=== PATIENT | female | born 1990 | race Caucasian/White ===

== ENCOUNTER 2018-01-11 12:17 | Outpatient (CLI) | END 2018-01-11 14:27 | disposition home or self-care (01) ==

== ENCOUNTER 2018-01-15 09:43 | Outpatient (CLI) | END 2018-01-15 12:30 | disposition home or self-care (01) ==

== ENCOUNTER 2018-01-22 07:45 | Inpatient (IN) | END 2018-01-24 14:19 | disposition home or self-care (01) | DRG 767 ==

== ENCOUNTER 2018-12-16 08:08 | Emergency (ER) | payer MEDICAID ==
[~2018-12-16] VITALS: Ht 167.6 cm; Wt 88.4 kg
[~2018-12-16 08:08] MED LIST: IBUP-1542 PO; PREN1TAB17 PO
[2018-12-16 08:13] VITALS: Ht 167.6 cm; Wt 88.4 kg
[2018-12-16] MEDS ORDERED: KETOROLAC 60 MG INJ IM STA (08:59)
[2018-12-16] MEDS ORDERED: IBUP-1542 PO (09:48)
--- NOTE | 2018-12-16 09:48 | ERD ---
ER Documentation Chief Complaint Chief Complaint Complains of a bdominal pain x3 days HPI 28-year-old female presents with complaint of upper right quadrant pain for the past 3 days. States that the pain is intermittent. States that she gets this pain every so often with a frequency of 5 times in the last 2 months and is always in the upper right quadrant. States that she feels like she has to vomit when the pain comes. Denies having any history of Colelithiasis or cholecystitis. Denies fevers, dysuria, vaginal discharge. ROS All systems reviewed and are negative except as per history of present illness. Medications Home Meds Active Scripts Ondansetron (Ondansetron Odt) 8 Mg Tab.rapdis, 8 MG PO Q6H PRN for NAUSEA AND/OR VOMITING, #10 TAB Prov:CHERYL FERRARA 12/16/18 Ibuprofen* (Motrin*) 600 Mg Tab, 600 MG PO Q6 for pain, #30 TAB Prov:CHERYL FERRARA 12/16/18 Ibuprofen* (Ibuprofen*) 600 Mg Tablet, 600 MG PO Q6, #60 TAB 0 Refills Prov:PARKER PALOMO MD 01/23/18 Reported Medications Vit-Iron Fumarate-FA ( Tablet) 1 Each Tablet, 1 EACH PO DAILY 01/23/14 Allergies Allergies: Coded Allergies: No Known Allergy (Verified , 12/16/18) PMhx/Soc Medical and Surgical Hx: pt denies Medical Hx, pt denies Surgical Hx History of Surgery: No Anesthesia Reaction: No Hx Neurological Disorder: No Hx Respiratory Disorders: No Hx Cardiac Disorders: No Hx Psychiatric Problems: No Hx Miscellaneous Medical Probl: No Hx Alcohol Use: No Hx Substance Use: No Hx Tobacco Use: No Smoking Status: Never smoker FmHx Family History: No diabetes, No coronary disease, No other Physical Exam Vitals Vital Signs Date Temp Pulse Resp B/P (MAP) Pulse Ox O2 O2 Flow FiO2 Time Delivery Rate 12/16/18 68 18 120/72 98 Room Air 09:59 (88) 12/16/18 98.5 70 20 164/98 98 08:13 (120) Physical Exam Const: No acute distress Head: Atraumatic Eyes: Normal Conjunctiva ENT: Normal External Ears, Nose and Mouth. Neck: Full range of motion. No meningismus. Resp: Clear to auscultation bilaterally Cardio: Regular rate and rhythm, no murmurs Abd: Soft, non tender, non distended. Normal bowel sounds. Negative McBurney's. Negative Marinelli's. Skin: No petechiae or rashes Back: No midline or flank tenderness Ext: No cyanosis, or edema Neur: Awake and alert Psych: Normal Mood and Affect Result Diagram: 12/16/18 0912/16/18 09 Results 24 hrs Laboratory Tests Test 12/16/18 08:59 12/16/18 09:00 12/16/18 09:01 12/16/18 09:03 Urine Color STRAW Urine Clarity CLEAR Urine pH 6.0 Urine Specific 1.008 [place] Urine Ketones NEGATIVE mg/dL Urine Nitrite NEGATIVE mg/dL Urine Bilirubin NEGATIVE mg/dL Urine NEGATIVE mg/dL Urobilinogen Urine Leukocyte NEGATIVE Ama/ul Esterase Urine Hemoglobin NEGATIVE mg/dL Urine Glucose NEGATIVE mg/dL Urine Total NEGATIVE mg/dl Protein White Blood Count 9.3 10^3/ul Red Blood Count 4.55 10^6/ul Hemoglobin 13.3 g/dl Hematocrit 39.3 % Mean Corpuscular 86.4 fl Volume Mean Corpuscular 29.2 pg Hemoglobin Mean Corpuscular 33.8 g/dl Hemoglobin Concen t Red Cell 12.2 % Distribution Width Platelet Count 327 10^3/UL Mean Platelet 9.1 fl Volume Immature 0.600 % Granulocytes % Neutrophils % 79.6 % Lymphocytes % 14.6 % Monocytes % 4.6 % Eosinophils % 0.3 % Basophils % 0.3 % Nucleated Red 0.0 /100WBC Blood Cells % Immature 0.060 10^3/ul Granulocytes # Neutrophils # 7.4 10^3/ul Lymphocytes # 1.4 10^3/ul Monocytes # 0.4 10^3/ul Eosinophils # 0.0 10^3/ul Basophils # 0.0 10^3/ul Nucleated Red 0.0 10^3/ul Blood Cells # Sodium Level 142 mmol/L Potassium Level 4.1 mmol/L Chloride Level 106 mmol/L Carbon Dioxide 26 mmol/L Level Anion Gap 10 Blood Urea 11 mg/dl Nitrogen Creatinine 0.55 mg/dl Est Glomerular > 60 mL/min Filtrat Rate mL/min Glucose Level 83 mg/dl Calcium Level 9.6 mg/dl Total Bilirubin 0.3 mg/dl Direct Bilirubin 0.00 mg/dl Indirect 0.3 mg/dl Bilirubin Aspartate Amino 21 IU/L Transf (AST/SGOT) Alanine 29 IU/L Aminotransferase (ALT/SGPT) Alkaline 96 IU/L Phosphatase Total Protein 8.1 g/dl Albumin 4.8 g/dl Globulin 3.30 g/dl Albumin/Globulin 1.45 Ratio Lipase 90 U/L Bedside Urine pH 6.0 (LAB) Bedside Urine Negative Protein (LAB) Bedside Urine Negative Glucose (UA) Bedside Urine Negative Ketones (LAB) Bedside Urine Negative Blood Bedside Urine Negative Nitrite (LAB) Bedside Urine Negative Leukocyte Esteras e (L POC Beta HCG, NEGATIVE Qualitative Current Medications Medications Dose Sig/Asif Start Time Status Last (Trade) Ordered Route PRN Stop Time Admin Dose Reason Admin Ketorolac 60 mg ONCE STAT 12/16/18 DC 12/16/18 Tromethamine IM 08:59 09:09 (Toradol) 12/16/18 09:01 Procedures/MDM DIAGNOSTIC IMAGING REPORT Patient: JUAN NEGRON : 1990 Age: 28 Sex: F MR #: [id number] DOS: 12/16/18 0859 Ordering MD: CHERYL FERRARA Location: [facility] Room/Bed: PROCEDURE: US Abdomen. CLINICAL INDICATION: Abdominal Pain TECHNIQUE: Multiple real-time images were acquired of the patient's abdomen and retroperitoneum utilizing a high resolution transducer. COMPARISON: None FINDINGS: The liver is of normal size, contour and echogenicity with no mass or intrahepatic ductal dilatation. Portal and hepatic vein are patent on color flow Doppler imaging. The common bile duct measures 2.7 millimeter in transverse diameter.No gallstones are identified. Gallbladder wall is not thickened and no abnormal pericholecystic fluid collection is seen. No sonographic Marinelli's sign was elicited during this exam. There is no ascites. The pancreas is not visualized due to gas in the intestinal tract.. The right kidney measures 9 cm in length. No hydronephrosis, calculus or masses present.. There is no evidence of abdominal aortic aneurysm or caval thrombosis. IMPRESSION: No evidence of cholelithiasis, cholecystitis or biliary obstruction. Nonvisualization of pancreas. .Pete Perez MD, MD Date Time Electronically viewed and signed by .Pete Perez MD, MD on 12/16/2018 09:33 .A/ CC: CHERYL FERRARA [id number] Ultrasound was ordered and results within normal limits. I have low suspicion for appendicitis due to patient history and exam, including normal abdominal exam, lack of McBurney's point tenderness. I have low suspicion for volvulus or obstruction due patient history and exam, including lack of history of biliary emesis and normal physical exam. . I have low suspicion of invasive diarrhea due to patient history and exam, including lack of hematochezia. I have low suspicion for dehydration due to moist and pink mucous membranes, patients non lethargic state, and normal cap refill. I have low suspicion of DKA based on patient history and exam, including normal glucose, urinalysis, and lack of signs of dehydration. I have low suspicion for adrenal crisis, AAA, mesenteric ischemia, pyelonephritis, cholecystitis, aortic dissection, ectopic, AR, pneumonia, acute pancreatitis, PID, or other emergent causes based on patient history and exam. Most likely diagnosis is viral gastritis. Based on these findings I do not feel that additional labs, imaging. or antibiotics are necessary. Patient was discharged with strict ER precautions. Patient was recommended to follow-up with PMD. All questions answered at discharge. Departure Diagnosis: Primary Impression: Abdominal pain Abdominal location: right upper quadrant Qualified Codes: R10.11 - Right upper quadrant pain Condition: Stable CHERYL FERRARA Dec 16, 2018 09:48
[2018-12-16] MEDS ORDERED: ONDA8TAB14 PO (09:52)
[2018-12-16 09:59] VITALS: BP 120/72; PULSE 68; RESP 18
== END 2018-12-16 10:00 | disposition home or self-care (01) ==
LOC: FTE 08:08
DX: R10.11 Right upper quadrant pain (principal)
CPT/HCPCS: 36415; 76705; 80053; 81003; 81025; 83690; 85025; 96372; J1885; Z7502

== ENCOUNTER 2019-03-17 06:55 | Emergency (ER) | payer MEDICAID ==
[~2019-03-17] VITALS: Ht 160 cm; Wt 89.2 kg
[~2019-03-17 06:55] MED LIST changes: +ONDA8TAB14 PO
[2019-03-17 06:57] VITALS: Ht 160 cm; Wt 89.2 kg
[2019-03-17] MEDS ORDERED: KETOROLAC 30 MG INJ IV STA (07:17)
[2019-03-17] MEDS ORDERED: morphine 4 MG/ML VIAL IV STA (07:17)
[2019-03-17] MEDS ORDERED: SOD CHLORIDE 0.9% 1,000 ML IV STA (07:17)
[2019-03-17] MEDS ORDERED: ONDANSETRON 4 MG INJ IV STA (07:17)
--- NOTE | 2019-03-17 07:49 | ERD ---
ER Documentation Chief Complaint Chief Complaint ABDOMINAL PAIN ONSET 3 HRS AGO HPI 28-year-old female presents with complaint of upper right quadrant abdominal pain which started 3 hours ago. Patient states she was here about a month ago for similar complaint which self resolved during ER course. Since then the pain has not come back until now. At that time ultrasound was done and results were negative for cholelithiasis or cholecystitis. Patient states that she ate shrimp last night. Patient has had vomiting. Patient denies any dysuria, hematuria, fevers, chills, chest pain, palpitations. ROS All systems reviewed and are negative except as per history of present illness. Medications Home Meds Active Scripts Metronidazole* (Flagyl*) 500 Mg Tablet, 500 MG PO TID for 5 Days, TAB Prov:CHERYL FERRARA 03/17/19 Ciprofloxacin Hcl* (Ciprofloxacin Hcl*) 500 Mg Tablet, 500 MG PO BID for 3 Days, TAB Prov:CHERYL FERRARA 03/17/19 Hydrocodone/Acetaminophen ([place] 5-325 Tablet) 1 Each Tablet, 1-2 EACH PO Q6, #15 TAB Prov:CHERYL FERRARA 03/17/19 Ibuprofen* (Motrin*) 600 Mg Tab, 600 MG PO Q6, #30 TAB Prov:CHERYL FERRARA 03/17/19 Ondansetron (Ondansetron Odt) 8 Mg Tab.rapdis, 8 MG PO Q6H PRN for NAUSEA AND/OR VOMITING, #10 TAB Prov:CHERYL FERRARA 12/16/18 Ibuprofen* (Motrin*) 600 Mg Tab, 600 MG PO Q6 for pain, #30 TAB Prov:CHERYL FERRARA 12/16/18 Ibuprofen* (Ibuprofen*) 600 Mg Tablet, 600 MG PO Q6, #60 TAB 0 Refills Prov:PARKER PALOMO MD 01/23/18 Reported Medications Vit-Iron Fumarate-FA ( Tablet) 1 Each Tablet, 1 EACH PO DAILY 01/23/14 Allergies Allergies: Coded Allergies: No Known Allergy (Verified , 12/16/18) PMhx/Soc History of Surgery: No Anesthesia Reaction: No Hx Neurological Disorder: No Hx Respiratory Disorders: No Hx Cardiac Disorders: No Hx Psychiatric Problems: No Hx Miscellaneous Medical Probl: No Hx Alcohol Use: No Hx Substance Use: No Hx Tobacco Use: No FmHx Family History: No diabetes, No coronary disease, No other Physical Exam Vitals Vital Signs Date Temp Pulse Resp B/P (MAP) Pulse Ox O2 O2 Flow FiO2 Time Delivery Rate 03/17/19 98.1 85 18 146/85 99 06:57 (105) Physical Exam Const: Patient appears in distress due to pain. Head: Atraumatic Eyes: Normal Conjunctiva ENT: Normal External Ears, Nose and Mouth. Neck: Full range of motion. No meningismus. Resp: Clear to auscultation bilaterally Cardio: Regular rate and rhythm, no murmurs Abd: Upper right quadrant tenderness. Nondistended nonrigid. Skin: No petechiae or rashes Back: No midline or flank tenderness Ext: No cyanosis, or edema Neur: Awake and alert Psych: Normal Mood and Affect Result Diagram: 03/17/19 0721 03/17/19 0721 Results 24 hrs Laboratory Tests Test 03/17/19 07:21 03/17/19 08:17 White Blood Count 12.5 10^3/ul Red Blood Count 4.47 10^6/ul Hemoglobin 12.7 g/dl Hematocrit 37.4 % Mean Corpuscular Volume 83.7 fl Mean Corpuscular Hemoglobin 28.4 pg Mean Corpuscular Hemoglobin Concent 34.0 g/dl Red Cell Distribution Width 12.0 % Platelet Count 297 10^3/UL Mean Platelet Volume 9.7 fl Immature Granulocytes % 0.300 % Neutrophils % 84.6 % Lymphocytes % 10.5 % Monocytes % 4.2 % Eosinophils % 0.2 % Basophils % 0.2 % Nucleated Red Blood Cells % 0.0 /100WBC Immature Granulocytes # 0.040 10^3/ul Neutrophils # 10.6 10^3/ul Lymphocytes # 1.3 10^3/ul Monocytes # 0.5 10^3/ul Eosinophils # 0.0 10^3/ul Basophils # 0.0 10^3/ul Nucleated Red Blood Cells # 0.0 10^3/ul Urine Color YELLOW Urine Clarity TURBID Urine pH 9.0 Urine Specific [place] 1.018 Urine Ketones NEGATIVE mg/dL Urine Nitrite NEGATIVE mg/dL Urine Bilirubin NEGATIVE mg/dL Urine Urobilinogen NEGATIVE mg/dL Urine Leukocyte Esterase NEGATIVE Ama/ul Urine Microscopic RBC 1 /HPF Urine Microscopic WBC 1 /HPF Urine Amorphous Crystals MANY /HPF Urine Hemoglobin NEGATIVE mg/dL Urine Glucose NEGATIVE mg/dL Urine Total Protein NEGATIVE mg/dl Sodium Level 141 mmol/L Potassium Level 3.7 mmol/L Chloride Level 106 mmol/L Carbon Dioxide Level 24 mmol/L Anion Gap 11 Blood Urea Nitrogen 13 mg/dl Creatinine 0.59 mg/dl Est Glomerular Filtrat Rate mL/min > 60 mL/min Glucose Level 132 mg/dl Calcium Level 9.0 mg/dl Total Bilirubin 0.4 mg/dl Direct Bilirubin 0.00 mg/dl Indirect Bilirubin 0.4 mg/dl Aspartate Amino Transf (AST/SGOT) 20 IU/L Alanine Aminotransferase (ALT/SGPT) 16 IU/L Alkaline Phosphatase 85 IU/L Total Protein 7.8 g/dl Albumin 4.6 g/dl Globulin 3.20 g/dl Albumin/Globulin Ratio 1.43 Lipase 97 U/L POC Beta HCG, Qualitative NEGATIVE Current Medications Medications Dose Sig/Asif Start Time Status Last (Trade) Ordered Route PRN Stop Time Admin Dose Reason Admin Sodium 1,000 ml @ Q1H STAT 03/17/19 DC 03/17/19 Chloride 1,000 mls/hr IV 07:17 07:25 03/17/19 08:16 Morphine 4 mg ONCE STAT 03/17/19 DC 03/17/19 Sulfate IV 07:17 07:25 (morphine) 03/17/19 07:19 Ondansetron 4 mg ONCE STAT 03/17/19 DC 03/17/19 HCl (Zofran IV 07:17 07:25 Inj) 03/17/19 07:19 Ketorolac 30 mg ONCE STAT 03/17/19 DC 03/17/19 Tromethamine IV 07:17 08:21 (Toradol) 03/17/19 07:19 Morphine 2 mg ONCE STAT 03/17/19 DC 03/17/19 Sulfate IV 08:30 09:04 (morphine) 03/17/19 08:31 Procedures/MDM DIAGNOSTIC IMAGING REPORT Patient: JUAN NEGRON : 1990 Age: 28 Sex: F MR #: [id number] DOS: 03/17/19 0717 Ordering MD: CHERYL FERRARA Location: [facility] Room/Bed: PROCEDURE: US Abdomen. CLINICAL INDICATION: Abdominal Pain TECHNIQUE: Multiple real-time images were acquired of the patient's abdomen and retroperitoneum utilizing a high resolution transducer. COMPARISON: Abdominal ultrasound dated December 16, 2018 FINDINGS: The liver demonstrates normal echogenicity and size and no focal lesions are seen. Approximately 1.5 cm stone is seen in the region of the gallbladder neck. There is no pericholecystic fluid or gallbladder wall thickening. No intra or extrahepatic biliary dilatation is seen. The common bile duct measures 4 mm in maximal dimension. The visualized portions of the pancreas are unremarkable. No free fluid is identified. The right kidney measures 11 19 centimeters in length. No right-sided hydronephrosis. IMPRESSION: Cholelithiasis without sonographic evidence for cholecystitis. No biliary dilatation. Physician [place] Date Time Electronically viewed and signed by Oleg Ghotra Physician on 03/17/2019 08:44 ML/ CC: CHERYL FERRARA [id number] MDM: Patient's presentation is consistent with biliary colic secondary to cholelithiasis as noted on ultrasound. There is no ultrasound evidence for cholecystitis or patient did have a white count so I made a clinical decision to also treat for possible cholecystitis with antibiotics. Regarding crystals seen in patients urine, I discussed this with my supervising physician Dr. Mcbride and he stated that CT to rule out nephrolithiasis is not warranted as there was enough indication that patient symptoms was being caused by cholecystitis. Patient discharged with pain medication and patient's pain was controlled at ti me of discharge. I told patient that if her pain increases or she gets fever or any other worsening symptoms she should return to ER immediately. I have low suspicion for acute coronary syndrome, AAA, mesenteric ischemia, lower lobe pneumonia, DKA, bowel perforation, choledocholithiasis, ascending cholangitis, hepatic abscess, pancreatitis, PUD, splenic rupture, diverticulitis, pyelonephritis, nephrolithiasis, appendicitis, [, ectopic , PID, ovarian torsion or tubo-ovarian abscess]. At this time, patient is stable for discharge and outpatient management. I have instructed the patient to follow-up with his/her primary care physician in 1-2 days. I have discussed with the patient the possibility of needing to see a specialist for further workup and imaging studies if symptoms persist. I have instructed the patient to promptly return to the ER for any new or worsening sy mptoms including but not limited to increased pain, fever, nausea, vomiting, weakness or LOC. The patient and/or family expressed understanding of and agreement with this plan. All questions were answered. Home care instructions were provided. [Communication with patient both during the exam and instructions for discharge were performed with using a multigrapher . Patient gave verbal confirmation to the practitioner, through the multigrapher, that they understood everythign that was being said to them.] DISCLAIMER: Inadvertent spelling and grammatical errors are likely due to EHR/dictation s oftware use and do not reflect on the overall quality of patient care. Also, please note that the electronic time recorded on this note does not necessarily reflect the actual time of the patient encounter. Departure Diagnosis: Primary Impression: Cholelithiasis Cholelithiasis location: gallbladder Cholecystitis presence: without cholecystitis Biliary obstruction: without biliary obstruction Qualified Codes: K80.20 - Calculus of gallbladder without cholecystitis without obstruction Additional Impression: Biliary colic Condition: Stable CHERYL FERRARA Mar 17, 2019 07:49
[2019-03-17] MEDS ORDERED: morphine 2 MG INJ IV STA (08:30)
[2019-03-17] MEDS ORDERED: IBUP-1542 PO (09:49)
[2019-03-17] MEDS ORDERED: HYDR-4011 PO (09:49)
[2019-03-17] MEDS ORDERED: CIPR500T4 PO (09:49)
[2019-03-17] MEDS ORDERED: METR500T PO (09:50)
[2019-03-17 10:03] VITALS: BP 142/89; PULSE 65; RESP 18
== END 2019-03-17 10:04 | disposition home or self-care (01) ==
LOC: FTE 06:55
DX: K80.20 Calculus of gallbladder without cholecystitis without obstruction (principal)
CPT/HCPCS: 36415; 76705; 80053; 81001; 81025; 83690; 85025; 96361; 96374; 96375; 96376; J1885; J2270; J2405; J7030; Z7502

== ENCOUNTER 2019-03-21 19:56 | Inpatient (IN) | payer MEDICAID ==
[~2019-03-21] VITALS: Ht 162.6 cm; Wt 83.4 kg
[~2019-03-21 19:56] MED LIST changes: +CIPR500T4 PO; +HYDR-4011 PO; +METR500T PO
[2019-03-21 19:59] VITALS: Ht 162.6 cm; Wt 83.4 kg
[2019-03-21] MEDS ORDERED: KETOROLAC 30 MG INJ IV STA (20:25)
[2019-03-21] MEDS ORDERED: SOD CHLORIDE 0.9% 1,000 ML IV STA (20:25)
[2019-03-21] MEDS ORDERED: ONDANSETRON 4 MG INJ IV STA (20:25)
[2019-03-21] MEDS ORDERED: HYDROmorphONE 1 MG/ML SYG IV STA (20:25)
--- NOTE | 2019-03-21 21:00 | ERD ---
ER Documentation Chief Complaint Chief Complaint Dx with gallstones on monday and states pain never went away HPI 28-year-old female presents with complaint of right upper quadrant pain since 2 AM this morning. In addition patient states that she has been vomiting. States the pain is currently 10 out of 10. Patient was just here this past Monday and was diagnosed with cholelithiasis and treated for pain and discharged. Patient stated that the pain was resolved for the most part but never fully went away since discharge. Patient states that she was on vacation yesterday when the pain started and they had to come back because she was in so much pain. Patient denies any fevers, chills, dysuria, hematuria, flank pain, chest pain, shortness of breath, cough. ROS All systems reviewed and are negative except as per history of present illness. Medications Home Meds Active Scripts Metronidazole* (Flagyl*) 500 Mg Tablet, 500 MG PO TID for 5 Days, TAB Prov:CHERYL FERRARA 03/17/19 Ciprofloxacin Hcl* (Ciprofloxacin Hcl*) 500 Mg Tablet, 500 MG PO BID for 3 Days, TAB Prov:CHERYL FERRARA 03/17/19 Hydrocodone/Acetaminophen ([place] 5-325 Tablet) 1 Each Tablet, 1-2 EACH PO Q6, #15 TAB Prov:CHERYL FERRARA 03/17/19 Ibuprofen* (Motrin*) 600 Mg Tab, 600 MG PO Q6, #30 TAB Prov:CHERYL FERRARA 03/17/19 Ondansetron (Ondansetron Odt) 8 Mg Tab.rapdis, 8 MG PO Q6H PRN for NAUSEA AND/OR VOMITING, #10 TAB Prov:CHERYL FERRARA 12/16/18 Ibuprofen* (Motrin*) 600 Mg Tab, 600 MG PO Q6 for pain, #30 TAB Prov:CHERYL FERRARA 12/16/18 Ibuprofen* (Ibuprofen*) 600 Mg Tablet, 600 MG PO Q6, #60 TAB 0 Refills Prov:PARKER PALOMO MD 01/23/18 Reported Medications Vit-Iron Fumarate-FA ( Tablet) 1 Each Tablet, 1 EACH PO DAILY 01/23/14 Allergies Allergies: Coded Allergies: No Known Allergy (Verified , 12/16/18) PMhx/Soc Medical and Surgical Hx: pt denies Medical Hx, pt denies Surgical Hx History of Surgery: No Anesthesia Reaction: No Hx Neurological Disorder: No Hx Respiratory Disorders: No Hx Cardiac Disorders: No Hx Psychiatric Problems: No Hx Miscellaneous Medical Probl: No Hx Alcohol Use: No Hx Substance Use: No Hx Tobacco Use: No Smoking Status: Never smoker FmHx Family History: No diabetes, No coronary disease, No other Physical Exam Vitals Vital Signs Date Temp Pulse Resp B/P (MAP) Pulse Ox O2 O2 Flow FiO2 Time Delivery Rate 03/21/19 99.1 67 16 163/92 100 19:59 (115) Physical Exam Const: Patient appears to be very uncomfortable. Head: Atraumatic Eyes: Normal Conjunctiva ENT: Normal External Ears, Nose and Mouth. Neck: Full range of motion. No meningismus. Resp: Clear to auscultation bilaterally Cardio: Regular rate and rhythm, no murmurs Abd: Tenderness palpation right upper quadrant. negative McBurney's. Skin: No petechiae or rashes Back: No midline or flank tenderness Ext: No cyanosis, or edema Neur: Awake and alert Psych: Normal Mood and Affect Result Diagram: 03/21/19203103/21/192031 Results 24 hrs Laboratory Tests Test 03/21/19 20:32 03/21/19 20:36 White Blood Count 18.5 10^3/ul Red Blood Count 4.60 10^6/ul Hemoglobin 13.1 g/dl Hematocrit 38.2 % Mean Corpuscular Volume 83.0 fl Mean Corpuscular Hemoglobin 28.5 pg Mean Corpuscular Hemoglobin Concent 34.3 g/dl Red Cell Distribution Width 12.1 % Platelet Count 402 10^3/UL Mean Platelet Volume 9.5 fl Immature Granulocytes % 0.400 % Neutrophils % 89.5 % Lymphocytes % 5.2 % Monocytes % 4.8 % Eosinophils % 0.0 % Basophils % 0.1 % Nucleated Red Blood Cells % 0.0 /100WBC Immature Granulocytes # 0.080 10^3/ul Neutrophils # 16.6 10^3/ul Lymphocytes # 1.0 10^3/ul Monocytes # 0.9 10^3/ul Eosinophils # 0.0 10^3/ul Basophils # 0.0 10^3/ul Nucleated Red Blood Cells # 0.0 10^3/ul Urine Color YELLOW Urine Clarity CLOUDY Urine pH 6.0 Urine Specific [place] 1.023 Urine Ketones 2+ mg/dL Urine Nitrite NEGATIVE mg/dL Urine Bilirubin NEGATIVE mg/dL Urine Urobilinogen NEGATIVE mg/dL Urine Leukocyte Esterase TRACE Ama/ul Urine Microscopic RBC > 182 /HPF Urine Microscopic WBC 28 /HPF Urine Squamous Epithelial Cells MODERATE /HPF Urine Mucus FEW /HPF Urine Hemoglobin 3+ mg/dL Urine Glucose NEGATIVE mg/dL Urine Total Protein 2+ mg/dl Sodium Level 139 mmol/L Potassium Level 3.4 mmol/L Chloride Level 100 mmol/L Carbon Dioxide Level 25 mmol/L Anion Gap 14 Blood Urea Nitrogen 6 mg/dl Creatinine 0.51 mg/dl Est Glomerular Filtrat Rate mL/min > 60 mL/min Glucose Level 127 mg/dl Calcium Level 9.5 mg/dl Total Bilirubin 0.6 mg/dl Direct Bilirubin 0.00 mg/dl Indirect Bilirubin 0.6 mg/dl Aspartate Amino Transf (AST/SGOT) 20 IU/L Alanine Aminotransferase (ALT/SGPT) 24 IU/L Alkaline Phosphatase 79 IU/L Total Protein 8.3 g/dl Albumin 4.8 g/dl Globulin 3.50 g/dl Albumin/Globulin Ratio 1.37 Lipase 41 U/L POC Beta HCG, Qualitative NEGATIVE Current Medications Medications Dose Sig/Asif Start Time Status Last (Trade) Ordered Route PRN Stop Time Admin Dose Reason Admin Sodium 1,000 ml @ Q1H STAT 03/21/19 DC 03/21/19 Chloride 1,000 mls/hr IV 20:25 03/21/19 20:35 21:24 1 mg ONCE STAT 03/21/19 DC 03/21/19 Hydromorphone IV 20:25 03/21/19 20:41 HCl 21:22 (Dilaudid) Ondansetron 4 mg ONCE STAT 03/21/19 DC 03/21/19 HCl (Zofran IV 20:25 03/21/19 20:41 Inj) 20:27 Ketorolac 30 mg ONCE STAT 03/21/19 DC 03/21/19 Tromethamine IV 20:25 03/21/19 20:41 (Toradol) 20:27 1 mg ONCE STAT 03/21/19 DC Hydromorphone IV 21:12 03/21/19 HCl 21:14 (Dilaudid) 1 mg ONCE STAT 03/21/19 DC 03/21/19 Hydromorphone IV 21:21 03/21/19 21:26 HCl 21:23 (Dilaudid) CHERYL FERRARA Mar 21, 2019 21:00
[2019-03-21] MEDS ORDERED: HYDROmorphONE 2 MG/ML SYG IV STA (21:12)
[2019-03-21] MEDS ORDERED: HYDROmorphONE 0.5 MG/0.5 ML SYG IV STA (21:21)
--- NOTE | 2019-03-21 22:22 | ERD ---
ER Documentation Chief Complaint Chief Complaint Dx with gallstones on monday and states pain never went away HPI This 28-year-old female presents for evaluation and right upper quadrant pain. Her symptoms have been ongoing since Monday. She was seen here and had a noted gallbladder on ultrasound. She denies fever, her symptoms are worsened by food, currently she has on her period, and she is still having a very small amount of vaginal bleeding. She denies vaginal discharge, she has not had any pelvic pain. Her symptoms are constant. ROS All systems reviewed and are negative except as per history of present illness. Medications Home Meds Active Scripts Metronidazole* (Flagyl*) 500 Mg Tablet, 500 MG PO TID for 5 Days, TAB Prov:CHERYL FERRARA 03/17/19 Ciprofloxacin Hcl* (Ciprofloxacin Hcl*) 500 Mg Tablet, 500 MG PO BID for 3 Days, TAB Prov:CHERYL FERRARA 03/17/19 Hydrocodone/Acetaminophen ([place] 5-325 Tablet) 1 Each Tablet, 1-2 EACH PO Q6, #15 TAB Prov:CHERYL FERRARA 03/17/19 Ibuprofen* (Motrin*) 600 Mg Tab, 600 MG PO Q6, #30 TAB Prov:CHERYL FERRARA 03/17/19 Ondansetron (Ondansetron Odt) 8 Mg Tab.rapdis, 8 MG PO Q6H PRN for NAUSEA AND/OR VOMITING, #10 TAB Prov:CHERYL FERRARA 12/16/18 Ibuprofen* (Motrin*) 600 Mg Tab, 600 MG PO Q6 for pain, #30 TAB Prov:CHERYL FERRARA 12/16/18 Ibuprofen* (Ibuprofen*) 600 Mg Tablet, 600 MG PO Q6, #60 TAB 0 Refills Prov:PARKER PALOMO MD 01/23/18 Reported Medications Vit-Iron Fumarate-FA ( Tablet) 1 Each Tablet, 1 EACH PO DAILY 01/23/14 Allergies Allergies: Coded Allergies: No Known Allergy (Verified , 12/16/18) PMhx/Soc Medical and Surgical Hx: pt denies Medical Hx, pt denies Surgical Hx History of Surgery: No Anesthesia Reaction: No Hx Neurological Disorder: No Hx Respiratory Disorders: No Hx Cardiac Disorders: No Hx Psychiatric Problems: No Hx Miscellaneous Medical Probl: No Hx Alcohol Use: No Hx Substance Use: No Hx Tobacco Use: No Smoking Status: Never smoker FmHx Family History: diabetes Physical Exam Vitals Vital Signs Date Temp Pulse Resp B/P (MAP) Pulse Ox O2 O2 Flow FiO2 Time Delivery Rate 03/21/19 99.1 67 16 163/92 100 19:59 (115) Physical Exam Const: No acute distress Head: Atraumatic Eyes: Normal Conjunctiva ENT: Normal External Ears, Nose and Mouth. Neck: Full range of motion. No meningismus. Resp: Clear to auscultation bilaterally Cardio: Regular rate and rhythm, no murmurs Abd: Soft, non tender, non distended. Normal bowel sounds Skin: No petechiae or rashes Back: No midline or flank tenderness Ext: No cyanosis, or edema Neur: Awake and alert Psych: Normal Mood and Affect Result Diagram: 03/21/19203103/21/192031 Results 24 hrs Laboratory Tests Test 03/21/19 20:32 03/21/19 20:36 White Blood Count 18.5 10^3/ul Red Blood Count 4.60 10^6/ul Hemoglobin 13.1 g/dl Hematocrit 38.2 % Mean Corpuscular Volume 83.0 fl Mean Corpuscular Hemoglobin 28.5 pg Mean Corpuscular Hemoglobin Concent 34.3 g/dl Red Cell Distribution Width 12.1 % Platelet Count 402 10^3/UL Mean Platelet Volume 9.5 fl Immature Granulocytes % 0.400 % Neutrophils % 89.5 % Lymphocytes % 5.2 % Monocytes % 4.8 % Eosinophils % 0.0 % Basophils % 0.1 % Nucleated Red Blood Cells % 0.0 /100WBC Immature Granulocytes # 0.080 10^3/ul Neutrophils # 16.6 10^3/ul Lymphocytes # 1.0 10^3/ul Monocytes # 0.9 10^3/ul Eosinophils # 0.0 10^3/ul Basophils # 0.0 10^3/ul Nucleated Red Blood Cells # 0.0 10^3/ul Urine Color YELLOW Urine Clarity CLOUDY Urine pH 6.0 Urine Specific [place] 1.023 Urine Ketones 2+ mg/dL Urine Nitrite NEGATIVE mg/dL Urine Bilirubin NEGATIVE mg/dL Urine Urobilinogen NEGATIVE mg/dL Urine Leukocyte Esterase TRACE Ama/ul Urine Microscopic RBC > 182 /HPF Urine Microscopic WBC 28 /HPF Urine Squamous Epithelial Cells MODERATE /HPF Urine Mucus FEW /HPF Urine Hemoglobin 3+ mg/dL Urine Glucose NEGATIVE mg/dL Urine Total Protein 2+ mg/dl Sodium Level 139 mmol/L Potassium Level 3.4 mmol/L Chloride Level 100 mmol/L Carbon Dioxide Level 25 mmol/L Anion Gap 14 Blood Urea Nitrogen 6 mg/dl Creatinine 0.51 mg/dl Est Glomerular Filtrat Rate mL/min > 60 mL/min Glucose Level 127 mg/dl Calcium Level 9.5 mg/dl Total Bilirubin 0.6 mg/dl Direct Bilirubin 0.00 mg/dl Indirect Bilirubin 0.6 mg/dl Aspartate Amino Transf (AST/SGOT) 20 IU/L Alanine Aminotransferase (ALT/SGPT) 24 IU/L Alkaline Phosphatase 79 IU/L Total Protein 8.3 g/dl Albumin 4.8 g/dl Globulin 3.50 g/dl Albumin/Globulin Ratio 1.37 Lipase 41 U/L POC Beta HCG, Qualitative NEGATIVE Current Medications Medications Dose Sig/Asif Start Time Status Last (Trade) Ordered Route PRN Stop Time Admin Dose Reason Admin Sodium 1,000 ml @ Q1H STAT 03/21/19 DC 03/21/19 Chloride 1,000 mls/hr IV 20:25 03/21/19 20:35 21:24 1 mg ONCE STAT 03/21/19 DC 03/21/19 Hydromorphone IV 20:25 03/21/19 20:41 HCl 21:22 (Dilaudid) Ondansetron 4 mg ONCE STAT 03/21/19 DC 03/21/19 HCl (Zofran IV 20:25 03/21/19 20:41 Inj) 20:27 Ketorolac 30 mg ONCE STAT 03/21/19 DC 03/21/19 Tromethamine IV 20:25 03/21/19 20:41 (Toradol) 20:27 1 mg ONCE STAT 03/21/19 DC Hydromorphone IV 21:12 03/21/19 HCl 21:14 (Dilaudid) 1 mg ONCE STAT 03/21/19 DC 03/21/19 Hydromorphone IV 21:21 03/21/19 21:26 HCl 21:23 (Dilaudid) Ondansetron 4 mg BRIDGE ORDER 03/22/19 HCl (Zofran PRN IV 00:00 03/22/19 Inj) NAUSEA/VOMITI 23:59 NG 650 mg ER BRIDGE 03/22/19 Acetaminophen PRN PO 00:00 03/22/19 (Tylenol .MILD PAIN 23:59 Tab) 1-3 OR TEMP Procedures/MDM Is a 28-year-old female presents for evaluation of right upper quadrant pain on exam patient appears to be in acute pain, she had notable right upper quadrant tenderness, she had no rebound or guarding, her signs and symptoms are mi concerning for acute cholecystitis. She did have hematuria noted although she is on her period, but still consider kidney stones. CT abdomen pelvis showed signs symptoms concerning for acute cholecystitis, although her initial ultrasound had only showed biliary sludge today. Thus patient will be admitted to [facility], she has no infectious symptoms, and she is otherwise stable. Did have a notable WBC count of 18.5. Accepting Care Team: Current data and ongoing care discussed. Primary: Dani Consulting: Roddy Outstanding Data: none Departure Diagnosis: Primary Impression: Abdominal pain Abdominal location: unspecified location Qualified Codes: R10.9 - Unspecified abdominal pain Condition: Stable GLENIS BANGURA MD Mar 21, 2019 22:22
[2019-03-22] VITALS (18 sets, daily range): BP systolic 114–158; BP diastolic 63–86; PULSE 68–84; RESP 16–28
[2019-03-22] MEDS ORDERED: ACETAMINOPHEN 325 MG TAB PO PRN
[2019-03-22] MEDS ORDERED: morphine 4 MG/ML VIAL IV ONE (01:19)
[2019-03-22] MEDS ORDERED: DEXTROSE 5%-0.45% NACL 1,000 ML IV SCH (02:48)
[2019-03-22] MEDS ORDERED: morphine 4 MG/ML VIAL IV PRN ×2 (03:00→04:30)
[2019-03-22] MEDS ORDERED: NACL 0.9% 3 ML SYG IV SCH (03:00)
[2019-03-22] MEDS ORDERED: ONDANSETRON 4 MG INJ IV PRN ×4 (03:00→22:00)
[2019-03-22] MEDS ORDERED: HYDROmorphONE 1 MG/ML SYG IV ONE (04:30)
[2019-03-22] MEDS ORDERED: HYDROmorphONE 2 MG/ML SYG IV ONE (04:33)
--- NOTE | 2019-03-22 06:20 | HP ---
Date/Time of Note Date/Time of Note DATE: 03/22/19 TIME: 06:17 Assessment/Plan VTE Prophylaxis Risk score (from Ns)>0 risk: 1 SCD applied (from Ns): Yes Pharmacological prophylaxis: heparin Lines/Catheters IV Catheter Type (from [facility]): Saline Lock Assessment/Plan Assessment/Plan 28-year-old female with abdominal pain, secondary to acute cholecystitis 1. Acute cholecystitis -Keep n.p.o. with IV fluid -Pain management -IV antibiotic -Awaiting surgical eval 2. Leukocytosis: Secondary to above Result Diagram: 03/22/19 0439 03/22/199 Results 24hrs Laboratory Tests Test 03/21/19 20:32 03/21/19 20:36 03/22/19 04:39 White Blood Count 18.5 #H 12.3 #H Red Blood Count 4.60 3.92 L Hemoglobin 13.1 11.4 L Hematocrit 38.2 33.0 L Mean Corpuscular Volume 83.0 84.2 Mean Corpuscular Hemoglobin 28.5 L 29.1 Mean Corpuscular Hemoglobin Concent 34.3 34.5 Red Cell Distribution Width 12.1 12.2 Platelet Count 402 # 279 # Mean Platelet Volume 9.5 9.7 Immature Granulocytes % 0.400 0.300 Neutrophils % 89.5 H 74.7 Lymphocytes % 5.2 L 12.2 L Monocytes % 4.8 12.3 H Eosinophils % 0.0 0.3 Basophils % 0.1 0.2 Nucleated Red Blood Cells % 0.0 0.0 Immature Granulocytes # 0.080 H 0.040 H Neutrophils # 16.6 H 9.2 H Lymphocytes # 1.0 1.5 Monocytes # 0.9 1.5 H Eosinophils # 0.0 0.0 Basophils # 0.0 0.0 Nucleated Red Blood Cells # 0.0 0.0 Urine Color YELLOW Urine Clarity CLOUDY A Urine pH 6.0 Urine Specific [place] 1.023 Urine Ketones 2+ H Urine Nitrite NEGATIVE Urine Bilirubin NEGATIVE Urine Urobilinogen NEGATIVE Urine Leukocyte Esterase TRACE A Urine Microscopic RBC > 182 H Urine Microscopic WBC 28 H Urine Squamous Epithelial Cells MODERATE Urine Mucus FEW A Urine Hemoglobin 3+ H Urine Glucose NEGATIVE Urine Total Protein 2+ H Sodium Level 139 140 Potassium Level 3.4 L Pending Chloride Level 100 106 Carbon Dioxide Level 25 26 Anion Gap 14 H 8 Blood Urea Nitrogen 6 L 5 L Creatinine 0.51 0.47 Est Glomerular Filtrat Rate mL/min > 60 > 60 Glucose Level 127 133 Calcium Level 9.5 8.1 L Total Bilirubin 0.6 0.6 Direct Bilirubin 0.00 0.00 Indirect Bilirubin 0.6 0.6 Aspartate Amino Transf (AST/SGOT) 20 15 Alanine Aminotransferase (ALT/SGPT) 24 20 Alkaline Phosphatase 79 57 Total Protein 8.3 H 6.5 # Albumin 4.8 3.7 # Globulin 3.50 H 2.80 Albumin/Globulin Ratio 1.37 1.32 Lipase 41 POC Beta HCG, Qualitative NEGATIVE Phosphorus Level 2.7 Magnesium Level 1.8 HPI/ROS Admit Date/Time Admit Date/Time Mar 21, 2019 at 23:51 Hx of Present Illness Patient is a 28-year-old female who presents the ER complaining of abdominal pain. Pain is mainly localized in the right upper quadrant area. She was seen in our ER less than a week ago for abdominal pain. At that time ultrasound shows cholelithiasis without cholecystitis. CT abdomen/pelvis this time shows the followin. DISTENDED GALLBLADDER, CONTAINING GALLSTONES WITH THICKENING OF THE GALLBLADDER WALL AND PERICHOLECYSTIC FLUID, HIGHLY CONCERNING FOR ACUTE CHOLECYSTITIS. There is mild intrahepatic biliary dilatation. Common bile duct appears to be normal size. 2. Common bile duct appears to be within normal limits. 3. Thickening of the valentin of the distal stomach/proximal duodenum and hepatic flexure of large bowel with small amount of perihepatic fluid and fluid within the right paracolic gutter, likely secondary inflammation. 4. Mild splenomegaly. 5. The appendix is within normal limits. PMH/Family/Social Past Medical History Past Surgical Hx: other Family History Significant Family History: no pertinent family hx Social History Alcohol Use: none Smoking Status: Never smoker Drug Use: none Exam Constitutional: other (No acute distress) Head: normocephalic, atraumatic Eyes: EOMI, PERRL Respiratory: clear to auscultation, normal air movement Cardiovascular: regular rate and rhythm Gastrointestinal: soft Extremities: normal pulses Medications Current Medications Ondansetron HCl (Zofran Inj) 4 mg BRIDGE ORDER PRN IV NAUSEA/VOMITING; Start 03/22/19 at 00:00; Stop 03/22/19 at 23:59 Acetaminophen (Tylenol Tab) 650 mg ER BRIDGE PRN PO .MILD PAIN 1-3 OR TEMP; Start 03/22/19 at 00:00; Stop 03/22/19 at 23:59 Dextrose/Sodium Chloride 1,000 ml @ 125 mls/hr Q8H IV Last administered on 03/22/19at 03:38; Admin Dose 125 MLS/HR; Start 03/22/19 at 02:48 IV Flush (NS 3 ml) 3 ml PER PROTOCOL IV ; Start 03/22/19 at 03:00 Ondansetron HCl (Zofran Inj) 4 mg Q6H PRN IV NAUSEA/VOMITING; Start 03/22/19 at 03:00 Famotidine (Pepcid Iv) 20 mg Q12 IV ; Start 03/22/19 at 09:00 Piperacillin Sod/ Tazobactam Sod 100 ml @ 200 mls/hr Q6 IVPB ; Start 03/22/19 at 06:00 Morphine Sulfate (morphine) 4 mg Q4H PRN IV SEVERE PAIN LEVEL 7-10; Start 03/22/19 at 04:30 Ketorolac Tromethamine (Toradol) 30 mg Q6H PRN IV PAIN LEVEL 1-3; Start 03/22/19 at 04:30; Stop 03/25/19 at 04:29 Coded Allergies: No Known Allergy (Verified , 12/16/18) Social History Smoking Status: Never smoker Exam/Review of Systems Vital Signs Vitals Vital Signs Date Temp Pulse Resp B/P (MAP) Pulse Ox O2 O2 Flow FiO2 Time Delivery Rate 03/22/19 98.4 72 18 158/76 96 01:00 (103) 03/22/19 Room Air 00:01 Intake and Output 03/21/19 03/21/19 03/22/19 1515:00 23:00 07:00 IntakeIntake Total 150 ml BalanceBalance 150 ml CHERYL DORSEY MD Mar 22, 2019 06:20
[2019-03-22] MEDS: PIPER-TAZO 3.375 GM IV (PMX) 100 ML IVPB SCH ×3 (06:21→19:04)
[2019-03-22] MEDS: KETOROLAC 30 MG INJ IV PRN ×2 (06:28→18:11)
[2019-03-22] MEDS: FAMOTIDINE 20 MG INJ IV SCH ×2 (09:04→22:51)
[2019-03-22] MEDS: HYDROmorphONE 1 MG/ML SYG IV PRN ×2 (10:54→15:16)
[2019-03-22] MEDS: D5W-0.45 NACL + KCL 20 MEQ 1,000 ML IV SCH ×3 (13:22→22:51)
--- NOTE | 2019-03-22 14:13 | PN ---
Date/Time of Note Date/Time of Note DATE: 03/22/19 TIME: 14:09 Assessment/Plan VTE Prophylaxis Risk score (from [facility])>0 risk: 1 SCD applied (from [facility]): Yes Pharmacological prophylaxis: NA/contraindicated Pharm contraindication: low risk/ambulating Lines/Catheters IV C[facility]ter Type (from [facility] Saline Lock Assessment/Plan Hospital Course Assessment/Plan 1. Acute cholecystitis - continue analgesics - surgeon following - tentative plan for lap-lizzeth 2. Leukocytosis: Secondary to above - continue abx. - antipyretics prn 3. Hypokalemia - monitor and replete as needed DISPO/PLAN: continue IVF and analgesics Discussed POC with Dr. Ferreira Result Diagram: 03/22/199 03/22/19 0439 Results 24hrs Laboratory Tests Test 03/21/19 20:32 03/21/19 20:36 03/22/19 04:39 White Blood Count 18.5 #H 12.3 #H Red Blood Count 4.60 3.92 L Hemoglobin 13.1 11.4 L Hematocrit 38.2 33.0 L Mean Corpuscular Volume 83.0 84.2 Mean Corpuscular Hemoglobin 28.5 L 29.1 Mean Corpuscular Hemoglobin Concent 34.3 34.5 Red Cell Distribution Width 12.1 12.2 Platelet Count 402 # 279 # Mean Platelet Volume 9.5 9.7 Immature Granulocytes % 0.400 0.300 Neutrophils % 89.5 H 74.7 Lymphocytes % 5.2 L 12.2 L Monocytes % 4.8 12.3 H Eosinophils % 0.0 0.3 Basophils % 0.1 0.2 Nucleated Red Blood Cells % 0.0 0.0 Immature Granulocytes # 0.080 H 0.040 H Neutrophils # 16.6 H 9.2 H Lymphocytes # 1.0 1.5 Monocytes # 0.9 1.5 H Eosinophils # 0.0 0.0 Basophils # 0.0 0.0 Nucleated Red Blood Cells # 0.0 0.0 Urine Color YELLOW Urine Clarity CLOUDY A Urine pH 6.0 Urine Specific [place] 1.023 Urine Ketones 2+ H Urine Nitrite NEGATIVE Urine Bilirubin NEGATIVE Urine Urobilinogen NEGATIVE Urine Leukocyte Esterase TRACE A Urine Microscopic RBC > 182 H Urine Microscopic WBC 28 H Urine Squamous Epithelial Cells MODERATE Urine Mucus FEW A Urine Hemoglobin 3+ H Urine Glucose NEGATIVE Urine Total Protein 2+ H Sodium Level 139 140 Potassium Level 3.4 L 3.2 L Chloride Level 100 106 Carbon Dioxide Level 25 26 Anion Gap 14 H 8 Blood Urea Nitrogen 6 L 5 L Creatinine 0.51 0.47 Est Glomerular Filtrat Rate mL/min > 60 > 60 Glucose Level 127 133 Calcium Level 9.5 8.1 L Total Bilirubin 0.6 0.6 Direct Bilirubin 0.00 0.00 Indirect Bilirubin 0.6 0.6 Aspartate Amino Transf (AST/SGOT) 20 15 Alanine Aminotransferase (ALT/SGPT) 24 20 Alkaline Phosphatase 79 57 Total Protein 8.3 H 6.5 # Albumin 4.8 3.7 # Globulin 3.50 H 2.80 Albumin/Globulin Ratio 1.37 1.32 Lipase 41 POC Beta HCG, Qualitative NEGATIVE Phosphorus Level 2.7 Magnesium Level 1.8 Subjective 24 Hr Interval Summary Free Text/Dictation still reports abdominal pain, more on right upper abdominal quadrant. family at bedside. Exam/Review of Systems Exam Vitals Vital Signs Date Temp Pulse Resp B/P (MAP) Pulse Ox O2 O2 Flow FiO2 Time Delivery Rate 03/22/19 98.5 82 18 114/63 95 07:40 (80) 03/22/19 Room Air 00:01 Intake and Output 03/21/19 03/21/19 03/22/19 1515:00 23:00 07:00 IntakeIntake Total 250 ml BalanceBalance 250 ml Constitutional: alert, oriented Psych: nl mood/affect Head: normocephalic Neck: supple, non-tender Respiratory: clear to auscultation Cardiovascular: regular rate and rhythm Gastrointestinal: soft, tender Neurological: RETORT FEEDER GROUND BONE II-XII intact, nl mental status, nl speech Skin: nl turgor Results Results 24hrs Laboratory Tests Test 03/21/19 20:32 03/21/19 20:36 03/22/19 04:39 White Blood Count 18.5 #H 12.3 #H Red Blood Count 4.60 3.92 L Hemoglobin 13.1 11.4 L Hematocrit 38.2 33.0 L Mean Corpuscular Volume 83.0 84.2 Mean Corpuscular Hemoglobin 28.5 L 29.1 Mean Corpuscular Hemoglobin Concent 34.3 34.5 Red Cell Distribution Width 12.1 12.2 Platelet Count 402 # 279 # Mean Platelet Volume 9.5 9.7 Immature Granulocytes % 0.400 0.300 Neutrophils % 89.5 H 74.7 Lymphocytes % 5.2 L 12.2 L Monocytes % 4.8 12.3 H Eosinophils % 0.0 0.3 Basophils % 0.1 0.2 Nucleated Red Blood Cells % 0.0 0.0 Immature Granulocytes # 0.080 H 0.040 H Neutrophils # 16.6 H 9.2 H Lymphocytes # 1.0 1.5 Monocytes # 0.9 1.5 H Eosinophils # 0.0 0.0 Basophils # 0.0 0.0 Nucleated Red Blood Cells # 0.0 0.0 Urine Color YELLOW Urine Clarity CLOUDY A Urine pH 6.0 Urine Specific [place] 1.023 Urine Ketones 2+ H Urine Nitrite NEGATIVE Urine Bilirubin NEGATIVE Urine Urobilinogen NEGATIVE Urine Leukocyte Esterase TRACE A Urine Microscopic RBC > 182 H Urine Microscopic WBC 28 H Urine Squamous Epithelial Cells MODERATE Urine Mucus FEW A Urine Hemoglobin 3+ H Urine Glucose NEGATIVE Urine Total Protein 2+ H Sodium Level 139 140 Potassium Level 3.4 L 3.2 L Chloride Level 100 106 Carbon Dioxide Level 25 26 Anion Gap 14 H 8 Blood Urea Nitrogen 6 L 5 L Creatinine 0.51 0.47 Est Glomerular Filtrat Rate mL/min > 60 > 60 Glucose Level 127 133 Calcium Level 9.5 8.1 L Total Bilirubin 0.6 0.6 Direct Bilirubin 0.00 0.00 Indirect Bilirubin 0.6 0.6 Aspartate Amino Transf (AST/SGOT) 20 15 Alanine Aminotransferase (ALT/SGPT) 24 20 Alkaline Phosphatase 79 57 Total Protein 8.3 H 6.5 # Albumin 4.8 3.7 # Globulin 3.50 H 2.80 Albumin/Globulin Ratio 1.37 1.32 Lipase 41 POC Beta HCG, Qualitative NEGATIVE Phosphorus Level 2.7 Magnesium Level 1.8 Medications Medication Current Medications Ondansetron HCl (Zofran Inj) 4 mg BRIDGE ORDER PRN IV NAUSEA/VOMITING; Start 03/22/19 at 00:00; Stop 03/22/19 at 23:59 Acetaminophen (Tylenol Tab) 650 mg ER BRIDGE PRN PO .MILD PAIN 1-3 OR TEMP; Start 03/22/19 at 00:00; Stop 03/22/19 at 23:59 IV Flush (NS 3 ml) 3 ml PER PROTOCOL IV ; Start 03/22/19 at 03:00 Ondansetron HCl (Zofran Inj) 4 mg Q6H PRN IV NAUSEA/VOMITING; Start 03/22/19 at 03:00 Famotidine (Pepcid Iv) 20 mg Q12 IV Last administered on 03/22/19at 09:04; Admin Dose 20 MG; Start 03/22/19 at 09:00 Piperacillin Sod/ Tazobactam Sod 100 ml @ 200 mls/hr Q6 IVPB Last administered on 03/22/19 13:22; Admin Dose 200 MLS/HR; Start 03/22/19 at 06:00 Ketorolac Tromethamine (Toradol) 30 mg Q6H PRN IV PAIN LEVEL 1-3 Last administered on 03/22/19 06:28; Admin Dose 30 MG; Start 03/22/19 at 04:30; Stop 03/25/19 at 04:29 Hydromorphone HCl (Dilaudid) 1 mg Q4H PRN IV SEVERE PAIN LEVEL 7-10 Last administered on 03/22/19at 10:54; Admin Dose 1 MG; Start 03/22/19 at 09:00 Potassium Chloride/Dextrose/ Sod Cl 1,000 ml @ 125 mls/hr Q8H IV Last administered on 03/22/19 13:22; Admin Dose 125 MLS/HR; Start 03/22/19 at 12:30 CORNELL FLORES NP Mar 22, 2019 14:13
--- NOTE | 2019-03-22 19:13 | PREAC ---
Date/Time of Note Date/Time of Note DATE: 03/22/19 TIME: 19:11 Anesthesia Eval and Record Evaluation Time Pre-Procedure Interview DATE: 03/22/19 TIME: 19:11 Age 28 Sex female NPO: 8 hrs Preoperative diagnosis acute cholecystitis Planned procedure laparoscopic cholecystectomy Past Medical History Past Medical History: None Surgery & Anesthesia Issues No known issue Meds Anticoagulation: No Beta Donita within 24 hr: No Reason Beta Donita not given: Pt. not on B-Donita Active Scripts Metronidazole* (Flagyl*) 500 Mg Tablet, 500 MG PO TID for 5 Days, TAB Prov:CHERYL FERRARA 03/17/19 Ciprofloxacin Hcl* (Ciprofloxacin Hcl*) 500 Mg Tablet, 500 MG PO BID for 3 Days, TAB Prov:CHERYL FERRARA 03/17/19 Hydrocodone/Acetaminophen ([place] 5-325 Tablet) 1 Each Tablet, 1-2 EACH PO Q6, #15 TAB Prov:CHERYL FERRARA 03/17/19 Ibuprofen* (Motrin*) 600 Mg Tab, 600 MG PO Q6, #30 TAB Prov:CHERYL FERRARA 03/17/19 Ondansetron (Ondansetron Odt) 8 Mg Tab.rapdis, 8 MG PO Q6H PRN for NAUSEA AND/OR VOMITING, #10 TAB Prov:CHERYL FERRARA 12/16/18 Ibuprofen* (Motrin*) 600 Mg Tab, 600 MG PO Q6 for pain, #30 TAB Prov:CHERYL FERRARA 12/16/18 Ibuprofen* (Ibuprofen*) 600 Mg Tablet, 600 MG PO Q6, #60 TAB 0 Refills Prov:PARKER PALOMO MD 01/23/18 Reported Medications Vit-Iron Fumarate-FA ( Tablet) 1 Each Tablet, 1 EACH PO DAILY 01/23/14 Current Medications IV Flush (NS 3 ml) 3 ml PER PROTOCOL IV ; Start 03/22/19 at 03:00 Ondansetron HCl (Zofran Inj) 4 mg Q6H PRN IV NAUSEA/VOMITING; Start 03/22/19 at 03:00 Famotidine (Pepcid Iv) 20 mg Q12 IV Last administered on 03/22/19at 09:04; Admin Dose 20 MG; Start 03/22/19 at 09:00 Piperacillin Sod/ Tazobactam Sod 100 ml @ 200 mls/hr Q6 IVPB Last administered on 03/22/19at 19:04; Admin Dose 200 MLS/HR; Start 03/22/19 at 06:00 Ketorolac Tromethamine (Toradol) 30 mg Q6H PRN IV PAIN LEVEL 1-3 Last administered on 03/22/19at 18:11; Admin Dose 30 MG; Start 03/22/19 at 04:30; Stop 03/25/19 at 04:29 Hydromorphone HCl (Dilaudid) 1 mg Q4H PRN IV SEVERE PAIN LEVEL 7-10 Last administered on 03/22/19at 15:16; Admin Dose 1 MG; Start 03/22/19 at 09:00 Potassium Chloride/Dextrose/ Sod Cl 1,000 ml @ 125 mls/hr Q8H IV Last administered on 03/22/19at 13:22; Admin Dose 125 MLS/HR; Start 03/22/19 at 12:30 Meds reviewed: Yes Allergies Coded Allergies: No Known Allergy (Verified , 12/16/18) Allergies Reviewed: Yes Labs/Studies Labs Reviewed: Reviewed by anesthesiologist Result Diagram: 03/22/19 0439 03/22/19 0439 Laboratory Tests 03/22/19 04:39 test: Negative Pre-procedure Exam Last vitals Vital Signs Date Temp Pulse Resp B/P (MAP) Pulse Ox O2 O2 Flow FiO2 Time Delivery Rate 03/22/19 98.7 78 18 125/86 100 15:00 (99) 03/22/19 Room Air 00:01 Airway: Adequate mouth opening, Adequate thyromental dist Mallampati: Mallampati II Teeth: Normal Lung: Normal Heart: Normal ASA Physical Status ASA physical status: 2 Emergency: E Planned Anesthetic General/MAC: ETT Planned Pain Management Parenteral pain med Pre-operative Attestations Prior to commencing anesthesia and surgery, the patient was re-evaluated, there was verification of: *The patient's identity *The results of appropriate recent lab work and preoperative vital signs *The above evaluation not changing prior to induction *Anesthetic plan, risk benefits, alternative and complications discussed with patient/family; questions answered; patient/family understands, accepts and wishes to proceed. KEVIN MARINO Mar 22, 2019 19:13
--- NOTE | 2019-03-22 19:37 | CONS ---
Assessment/Plan Assessment/Plan Hospital Course (Demo Recall) Patient was admitted started on antibiotics. The ultrasound confirmed the acute cholecystitis with thickening wall of the gallbladder up to 8 mm. White count was found to be 18,000. Next morning the white count went down to 10,000. Assessment/Plan (Daily) Acute cholecystitis. For laparoscopic appendectomy. We discussed risks and benefits were discussed possible side effects, possible complications including but not limited to bleeding, infection, injury to other organs, anesthesia complication, patient understood risk and benefits and wished to proceed. Consultation Date/Type/Reason Admit Date/Time Mar 21, 2019 at 23:51 Date of Consultation: Mar 22, 2019 Type of Consult Surgical Reason for Consultation Acute cholecystitis Date/Time of Note DATE: 03/22/19 TIME: 19:35 Hx of Present Illness This 28-year-old female presents for evaluation and right upper quadrant pain. Her symptoms have been ongoing since Monday. She was seen here and had a noted gallbladder on ultrasound. She denies fever, her symptoms are worsened by food, currently she has on her period, and she is still having a very small amount of vaginal bleeding. She denies vaginal discharge, she has not had any pelvic pain. Her symptoms are constant. Constitutional: no complaints, improved Eyes: no complaints ENT: no complaints Respiratory: no complaints Cardiovascular: no complaints Gastrointestinal: pain, decreased appetite, nausea Genitourinary: no complaints Musculoskeletal: no complaints Skin: no complaints Neurologic: no complaints Endocrine: no complaints Lymphatic: no complaints Psychological: no complaints, nl mood/affect Immunologic: no complaints Past Medical History Medical History: no pertinent history Home Meds Active Scripts Metronidazole* (Flagyl*) 500 Mg Tablet, 500 MG PO TID for 5 Days, TAB Prov:CHERYL FERRARA 03/17/19 Ciprofloxacin Hcl* (Ciprofloxacin Hcl*) 500 Mg Tablet, 500 MG PO BID for 3 Days, TAB Prov:CHERYL FERRARA 03/17/19 Hydrocodone/Acetaminophen ([place] 5-325 Tablet) 1 Each Tablet, 1-2 EACH PO Q6, #15 TAB Prov:CHERYL FERRARA 03/17/19 Ibuprofen* (Motrin*) 600 Mg Tab, 600 MG PO Q6, #30 TAB Prov:CHERYL FERRARA 03/17/19 Ondansetron (Ondansetron Odt) 8 Mg Tab.rapdis, 8 MG PO Q6H PRN for NAUSEA AND/OR VOMITING, #10 TAB Prov:CHERYL FERRARA 12/16/18 Ibuprofen* (Motrin*) 600 Mg Tab, 600 MG PO Q6 for pain, #30 TAB Prov:CHERYL FERRARA 12/16/18 Ibuprofen* (Ibuprofen*) 600 Mg Tablet, 600 MG PO Q6, #60 TAB 0 Refills Prov:PARKER PALOMO MD 01/23/18 Reported Medications Vit-Iron Fumarate-FA ( Tablet) 1 Each Tablet, 1 EACH PO DAILY 01/23/14 Medications Current Medications IV Flush (NS 3 ml) 3 ml PER PROTOCOL IV ; Start 03/22/19 at 03:00 Ondansetron HCl (Zofran Inj) 4 mg Q6H PRN IV NAUSEA/VOMITING; Start 03/22/19 at 03:00 Famotidine (Pepcid Iv) 20 mg Q12 IV Last administered on 03/22/19at 09:04; Admin Dose 20 MG; Start 03/22/19 at 09:00 Piperacillin Sod/ Tazobactam Sod 100 ml @ 200 mls/hr Q6 IVPB Last administered on 03/22/19at 19:04; Admin Dose 200 MLS/HR; Start 03/22/19 at 06:00 Ketorolac Tromethamine (Toradol) 30 mg Q6H PRN IV PAIN LEVEL 1-3 Last administered on 03/22/19at 18:11; Admin Dose 30 MG; Start 03/22/19 at 04:30; Stop 03/25/19 at 04:29 Hydromorphone HCl (Dilaudid) 1 mg Q4H PRN IV SEVERE PAIN LEVEL 7-10 Last administered on 03/22/19at 15:16; Admin Dose 1 MG; Start 03/22/19 at 09:00 Potassium Chloride/Dextrose/ Sod Cl 1,000 ml @ 125 mls/hr Q8H IV Last administered on 03/22/19at 13:22; Admin Dose 125 MLS/HR; Start 03/22/19 at 12:30 Allergies: Coded Allergies: No Known Allergy (Verified , 12/16/18) Past Surgical History Past Surgical Hx: no surgical history Social History Smoking Status: Never smoker Exam/Review of Systems Exam Vitals Vital Signs Date Temp Pulse Resp B/P (MAP) Pulse Ox O2 O2 Flow FiO2 Time Delivery Rate 03/22/19 98.7 78 18 125/86 100 15:00 (99) 03/22/19 Room Air 00:01 Intake and Output 03/21/19 03/21/19 03/22/19 1414:59 22:59 06:59 IntakeIntake Total 150 ml BalanceBalance 150 ml Constitutional: alert, oriented, well developed Psych: no complaints, nl mood/affect Head: normocephalic, atraumatic Eyes: nl conjunctiva, EOMI, nl lids, nl sclera, PERRL ENMT: nl external ears & nose, nl lips & teeth, nl nasal mucosa & septum Neck: supple, non-tender Respiratory: clear to auscultation, normal air movement Cardiovascular: regular rate and rhythm, nl pulses Gastrointestinal: other (Marked tenderness in the right upper quadrant with positive Marinelli sign.) Musculoskeletal: nl extremities to inspection, nl gait and stance Extremities: normal pulses Neurological: REVENUE CYCLE SPECIALIST II-XII intact, nl mental status, nl speech, nl strength Skin: nl turgor; No rash or lesions Lymph: nl lymph nodes Results Result Diagram: 03/22/199 03/22/19 0439 Results 24hrs Laboratory Tests Test 03/21/19 20:32 03/21/19 20:36 03/22/19 04:39 White Blood Count 18.5 #H 12.3 #H Red Blood Count 4.60 3.92 L Hemoglobin 13.1 11.4 L Hematocrit 38.2 33.0 L Mean Corpuscular Volume 83.0 84.2 Mean Corpuscular Hemoglobin 28.5 L 29.1 Mean Corpuscular Hemoglobin Concent 34.3 34.5 Red Cell Distribution Width 12.1 12.2 Platelet Count 402 # 279 # Mean Platelet Volume 9.5 9.7 Immature Granulocytes % 0.400 0.300 Neutrophils % 89.5 H 74.7 Lymphocytes % 5.2 L 12.2 L Monocytes % 4.8 12.3 H Eosinophils % 0.0 0.3 Basophils % 0.1 0.2 Nucleated Red Blood Cells % 0.0 0.0 Immature Granulocytes # 0.080 H 0.040 H Neutrophils # 16.6 H 9.2 H Lymphocytes # 1.0 1.5 Monocytes # 0.9 1.5 H Eosinophils # 0.0 0.0 Basophils # 0.0 0.0 Nucleated Red Blood Cells # 0.0 0.0 Urine Color YELLOW Urine Clarity CLOUDY A Urine pH 6.0 Urine Specific [place] 1.023 Urine Ketones 2+ H Urine Nitrite NEGATIVE Urine Bilirubin NEGATIVE Urine Urobilinogen NEGATIVE Urine Leukocyte Esterase TRACE A Urine Microscopic RBC > 182 H Urine Microscopic WBC 28 H Urine Squamous Epithelial Cells MODERATE Urine Mucus FEW A Urine Hemoglobin 3+ H Urine Glucose NEGATIVE Urine Total Protein 2+ H Sodium Level 139 140 Potassium Level 3.4 L 3.2 L Chloride Level 100 106 Carbon Dioxide Level 25 26 Anion Gap 14 H 8 Blood Urea Nitrogen 6 L 5 L Creatinine 0.51 0.47 Est Glomerular Filtrat Rate mL/min > 60 > 60 Glucose Level 127 133 Calcium Level 9.5 8.1 L Total Bilirubin 0.6 0.6 Direct Bilirubin 0.00 0.00 Indirect Bilirubin 0.6 0.6 Aspartate Amino Transf (AST/SGOT) 20 15 Alanine Aminotransferase (ALT/SGPT) 24 20 Alkaline Phosphatase 79 57 Total Protein 8.3 H 6.5 # Albumin 4.8 3.7 # Globulin 3.50 H 2.80 Albumin/Globulin Ratio 1.37 1.32 Lipase 41 POC Beta HCG, Qualitative NEGATIVE Phosphorus Level 2.7 Magnesium Level 1.8 Medications Medication Current Medications IV Flush (NS 3 ml) 3 ml PER PROTOCOL IV ; Start 03/22/19 at 03:00 Ondansetron HCl (Zofran Inj) 4 mg Q6H PRN IV NAUSEA/VOMITING; Start 03/22/19 at 03:00 Famotidine (Pepcid Iv) 20 mg Q12 IV Last administered on 03/22/19at 09:04; Admin Dose 20 MG; Start 03/22/19 at 09:00 Piperacillin Sod/ Tazobactam Sod 100 ml @ 200 mls/hr Q6 IVPB Last administered on 03/22/19at 19:04; Admin Dose 200 MLS/HR; Start 03/22/19 at 06:00 Ketorolac Tromethamine (Toradol) 30 mg Q6H PRN IV PAIN LEVEL 1-3 Last administered on 03/22/19at 18:11; Admin Dose 30 MG; Start 03/22/19 at 04:30; Stop 03/25/19 at 04:29 Hydromorphone HCl (Dilaudid) 1 mg Q4H PRN IV SEVERE PAIN LEVEL 7-10 Last ad ministered on 03/22/19at 15:16; Admin Dose 1 MG; Start 03/22/19 at 09:00 Potassium Chloride/Dextrose/ Sod Cl 1,000 ml @ 125 mls/hr Q8H IV Last administered on 03/22/19at 13:22; Admin Dose 125 MLS/HR; Start 03/22/19 at 12:30 SRAVANI HICKS MD Mar 22, 2019 19:37
[2019-03-22] MEDS ORDERED: PROPOFOL 100 ML ONE (19:48)
[2019-03-22] MEDS ORDERED: LIDOCAINE 2% (SDV) 5 ML INJ ONE (19:52)
[2019-03-22] MEDS ORDERED: ROCURONIUM 50 MG INJ ONE (19:52)
[2019-03-22] MEDS ORDERED: LIDOCAINE 1% (MPF) 30 ML INJ INJ ONE (20:05)
[2019-03-22] MEDS ORDERED: BUPIVACAINE 0.5%/EPI (SDV) 30 ML INJ INJ ONE (20:05)
[2019-03-22] MEDS ORDERED: ONDANSETRON 4 MG INJ ONE (20:14)
[2019-03-22] MEDS ORDERED: DEXAMETHASONE 4 MG/ML 5 ML INJ ONE (20:14)
[2019-03-22] MEDS ORDERED: LABETALOL HCL 20MG INJ ONE (21:06)
[2019-03-22] MEDS ORDERED: GLYCOPYRROLATE 0.4 MG INJ ONE (21:13)
[2019-03-22] MEDS ORDERED: NEOSTIGMINE 3 MG/3 ML SYRINGE ONE (21:13)
[2019-03-22] MEDS ORDERED: DIPHENHYDRAMINE 50 MG INJ IV PRN ×2 (21:30→22:00)
[2019-03-22] MEDS ORDERED: KETOROLAC 30 MG INJ IV PRN (21:30)
[2019-03-22] MEDS ORDERED: METOCLOPRAMIDE 10 MG INJ IV PRN ×2 (21:30→22:00)
--- NOTE | 2019-03-22 21:31 | OPR ---
Date/Time of Note Date/Time of Note DATE: 03/22/19 TIME: 21:29 Operative Report Procedure Date: Mar 22, 2019 Preoperative Diagnosis Acute cholecystitis Postoperative Diagnosis Acute gangrenous cholecystitis Operation/Procedure Performed Laparoscopic cholecystectomy with fluorescent cholangiogram Surgeon see signature line Data Security Analyst None Anesthesia Type: general Anesthesiologist: PEARL MARINO MD Estimated Blood Loss: 10 - 50 ml's Transfusion none Specimen Gallbladder Grafts/Implants none Complications none Pt Condition Post Procedure: stable Disposition: PACU Indications 28-year-old female with acute attack of cholecystitis, elevated white blood count up to 19, started on antibiotics with slow improvement. Still significant tenderness in the right upper quadrant with positive Marinelli sign. We discussed risks and benefits were discussed possible side effects, possible complications including but not limited to bleeding, infection, injury to other organs, anesthesia complication, patient understood risk and benefits and wished to proceed. Procedure Description The risks, benefits and alternatives of the procedure were discussed with the patient and informed consent was obtained. We discussed with the patient and the family possibility of the bleeding, infection, injury to other organs, bile ducts injury, retained stones and necessity of the ERCP. OPERATIVE PROCEDURE: The patient was brought to the operating room and placed supine. IV antibiotics were given. Venodynes were placed to both lower extremities. General endotracheal anesthesia was achieved. The abdomen was prepped and draped in a sterile fashion. 0.25% Marcaine with epinephrine was used for local anesthesia. A small infraumbilical incision was made and a Veress needle inserted. Intraperitoneal position was confirmed using the saline drop test. Carbon dioxide pneumoperitoneum was achieved with a good filling pressure to 15 mmHg. The 30-degree 5 mm video laparoscope was inserted through a 5-mm trocar placed in the right paramedian position just next to umbilicus. There was no evidence of injury after Veress needle and trocar insertion. Additional trocars were placed, a 12-mm subxiphoid trocar, and two 5-mm trocars at the right upper quadrant. The gallbladder was grasped at the fundus and elevated cephalad. The area at Calot's triangle was dissected using blunt and electrocautery dissection, and critical view was obtained. ICG imaging confirmed the correct identification of the biliary ducts. Clip placed across the cystic duct and artery. The cystic duct was clipped additionally and then divided. The cystic artery was clipped x2 additionally. The gallbladder was dissected off the liver using electrocautery dissection and removed using an EndoCatch bag. The trocars were removed under direct visualization and no bleeding seen at the trocar sites. The pneumoperitoneum was reduced and the subxiphoid and umbilical trocar sites closed with 0 Vicryl to reapproximate the fascia. The trocar sites were reapproximated with 4-0 Monocryl sutures. Steri-Strips and sterile dressings were applied. The sponge and instrument counts were reported as maikel ect x2. Estimated blood loss was 5 cc. The patient was woken from anesthesia, extubated, and transferred to the recovery room in stable condition. By the end of the procedure, the instrument and sponge counts were correct x2. STATEMENT OF PRESENCE: Dr. Pereyra was present for the entire case. SRAVANI PEREYRA MD Mar 22, 2019 21:31
--- NOTE | 2019-03-22 21:35 | PAC ---
Date/Time of Note Date/Time of Note DATE: 03/22/19 TIME: 21:34 Post-Anesthesia Notes Post-Anesthesia Note Last documented vital signs Vital Signs Date Temp Pulse Resp B/P (MAP) Pulse Ox O2 O2 Flow FiO2 Time Delivery Rate 03/22/19 98.7 78 18 125/86 100 2135 (99) 03/22/19 Room Air 00:01 Activity: WNL Respiratory function: WNL Cardiovascular function: WNL Mental status: Baseline Pain reasonably controlled: Yes Hydration appropriate: Yes Nausea/Vomiting absent: Yes KEVIN MARINO Mar 22, 2019 21:35
[2019-03-22] MEDS ORDERED: FENTAnyl 50 MCG/ML VIAL IV PRN ×3 (22:00)
[2019-03-22] MEDS ORDERED: LABETALOL HCL 20MG INJ IV PRN (22:00)
[2019-03-22] MEDS ORDERED: MEPERIDINE 25 MG INJ IV PRN (22:00)
[2019-03-22] MEDS ORDERED: EPHEDrine 25 MG/5 ML SYG IV PRN (22:00)
[2019-03-22] MEDS ORDERED: hydrALAzine 20 MG INJ IV PRN (22:00)
[2019-03-22] MEDS ORDERED: ALBUTEROL 0.083% (NEB) 2.5 MG/3 ML AMP HHN PRN (22:00)
[2019-03-22] MEDS ORDERED: HYDROmorphONE 1 MG/5 ML IV SYRINGE IV PRN ×3 (22:00)
[2019-03-23 00:10] VITALS: BP 120/78; PULSE 72; RESP 18
[2019-03-23] MEDS: PIPER-TAZO 3.375 GM IV (PMX) 100 ML IVPB SCH ×3 (00:24→11:58)
[2019-03-23] MEDS: HYDROmorphONE 1 MG/ML SYG IV PRN ×3 (01:35→09:23)
[2019-03-23] MEDS: D5W-0.45 NACL + KCL 20 MEQ 1,000 ML IV SCH ×3 (04:30→12:30)
[2019-03-23 07:30] VITALS: BP 107/75; PULSE 70; RESP 19
[2019-03-23] MEDS: FAMOTIDINE 20 MG INJ IV SCH (09:21)
--- NOTE | 2019-03-23 11:58 | PN ---
Date/Time of Note Date/Time of Note DATE: 03/23/19 TIME: 11:14 Assessment/Plan Lines/Catheters IV Catheter Type (from Nrs): Peripheral IV Assessment/Plan Assessment/Plan She can be safely discharged home on a regular diet. Subjective 24 Hr Interval Summary Postoperative day #1 after laparoscopic cholecystectomy for acute gangrenous cholecystitis. Patient is doing well pain is well controlled tolerates liquids. With wounds clean Exam/Review of Systems Vital Signs Vitals Vital Signs Date Temp Pulse Resp B/P (MAP) Pulse Ox O2 O2 Flow FiO2 Time Delivery Rate 03/23/19 97.6 70 19 107/75 100 Room Air 07:30 (86) Intake and Output 03/22/19 03/22/19 03/23/19 1515:00 23:00 07:00 IntakeIntake Total 950 ml 1700 ml 750 ml OutputOutput Total 4 ml 42 ml 1 ml BalanceBalance 946 ml 1658 ml 749 ml Results Result Diagram: 03/23/19 0436 03/23/19 0436 SRAVANI HICKS MD Mar 23, 2019 11:58
[2019-03-23] MEDS ORDERED: CIPR500T4 PO (12:38)
--- NOTE | 2019-03-23 12:46 | PDOCDIS ---
Discharge Instructions DIAGNOSIS Discharge Diagnosis 1. Acute cholecystitis 2. Leukocytosis: 3. Hypokalemia CONDITION [id number] Patient Condition: [id number] Stable FOLLOW UP/APPOINTMENTS Follow-up Plan 1. Follow up with Dr. Bruno Pereyra in one week for follow up Office Address [address] [place] [address] Office CORNELL FLORES NP Mar 23, 2019 12:46
[2019-03-23] MEDS: HYDROCODONE/APAP (5/325) TAB PO PRN ×2 (13:03→13:04)
[2019-03-23] MEDS ORDERED: OXYC-279 PO (13:34)
[2019-03-23] MEDS ORDERED: ONDA8TAB9 PO (13:40)
[2019-03-23] MEDS ORDERED: OXYCODONE/ACETAMINOPHEN (5/325) TAB PO PRN (14:00)
--- NOTE | 2019-03-23 14:34 | DS ---
Date/Time of Note Date/Time of Note DATE: 03/23/19 TIME: 14:32 Discharge Summary Admission/Discharge Info Admit Date/Time Mar 21, 2019 at 23:51 Discharge Date/Time Discharge Diagnosis 1. Acute cholecystitis 2. Leukocytosis: 3. Hypokalemia Patient Condition: Stable Hospital Course This is a 28-year-old female who came to the hospital due to reports of localized right upper quadrant abdominal pain. She reports that she was seen in the ER less than a week ago for similar symptoms. She did have ultrasound of the abdomen showing cholelithiasis without cholecystitis. However patient did have CT scan of the abdomen done that did show distended gallbladder containing gallstones with thickening of the gallbladder and pericholecystic fluid concerning for acute cholecystitis. Patient was seen by surgeon. She did undergo laparoscopic cholecystectomy with good response. She was otherwise optimized medically with IV hydration as well as initially empirically placed on antibiotics for which we did continue. She was noted with urinalysis suspect for UTI and as previously mentioned was placed on antibiotics. During the course of stay she did improve. Status post surgery her leukocytosis did improve. She was afebrile on the day of discharge. Did monitor her electrolytes and repleted them as needed. She was also provided with analgesics as well. She was advised outpatient follow-up with a surgeon. The plan of care was discussed with the patient and patient verbalized her understanding. On the day of discharge patient was in stable condition Discussed POC with Dr. Ferreira [place] Meds Active Scripts Ondansetron Hcl* (Zofran*) 8 Mg Tablet, 8 MG PO Q6H PRN for NAUSEA, #30 TAB Prov:CORNELL FLORES NP 03/23/19 Oxycodone HCl/Acetaminophen ([place] 5-325 mg Tablet) 1 Each Tablet, 1 EACH PO Q6, #20 TAB Prov:CORNELL FLORES NP 03/23/19 Ciprofloxacin Hcl* (Ciprofloxacin Hcl*) 500 Mg Tablet, 500 MG PO BID, #8 TAB Prov:CORNELL FLORES NP 03/23/19 Ibuprofen* (Motrin*) 600 Mg Tab, 600 MG PO Q6, #30 TAB Prov:CHERYL FERRARA 03/17/19 Reported Medications Vit-Iron Fumarate-FA ( Tablet) 1 Each Tablet, 1 EACH PO DAILY 5/8/14 Discontinued Scripts Metronidazole* (Flagyl*) 500 Mg Tablet, 500 MG PO TID for 5 Days, TAB Prov:CHERYL FERRARA 03/17/19 Hydrocodone/Acetaminophen ([place] 5-325 Tablet) 1 Each Tablet, 1-2 EACH PO Q6, #15 TAB Prov:CHERYL FERRARA 03/17/19 Ibuprofen* (Motrin*) 600 Mg Tab, 600 MG PO Q6 for pain, #30 TAB Prov:CHERYL FERRARA 12/16/18 Ibuprofen* (Ibuprofen*) 600 Mg Tablet, 600 MG PO Q6, #60 TAB 0 Refills Prov:PARKER PALOMO MD 01/23/18 Follow-up Plan 1. Follow up with Dr. Bruno Pereyra in one week for follow up Office Address [id number] [place] [address]. [address] [place] [address] Office Primary Care Provider Care Physician No Primary Time spent on discharge: > 30 minutes Pending Labs Laboratory Tests Test 03/23/19 04:36 White Blood Count 10.1 10^3/ul (4.8-10.8) Red Blood Count 3.73 10^6/ul (4.20-5.40) Hemoglobin 10.8 g/dl (12.0-16.0) Hematocrit 31.6 % (37.0-47.0) Mean Corpuscular Volume 84.7 fl (82.0-101.0) Mean Corpuscular Hemoglobin 29.0 pg (29.0-33.0) Mean Corpuscular Hemoglobin Concent 34.2 g/dl (32.0-37.0) Red Cell Distribution Width 12.5 % (11.5-14.5) Platelet Count 289 10^3/UL (140-415) Mean Platelet Volume 9.8 fl (7.4-10.4) Immature Granulocytes % 0.500 % (0.001-0.429) Neutrophils % 88.7 % (39.0-77.0) Lymphocytes % 6.3 % (15.0-51.0) Monocytes % 4.4 % (0.0-11.0) Eosinophils % 0.0 % (0.0-7.0) Basophils % 0.1 % (0.0-2.0) Nucleated Red Blood Cells % 0.0 /100WBC (0.0-0.0) Immature Granulocytes # 0.050 10^3/ul (0.0-0.031) Neutrophils # 9.0 10^3/ul (1.6-7.5) Lymphocytes # 0.6 10^3/ul (0.8-2.9) Monocytes # 0.5 10^3/ul (0.3-0.9) Eosinophils # 0.0 10^3/ul (0.0-0.5) Basophils # 0.0 10^3/ul (0.0-0.1) Nucleated Red Blood Cells # 0.0 10^3/ul (0.0-0.0) Sodium Level 141 mmol/L (135-144) Potassium Level 3.9 mmol/L (3.5-5.1) Chloride Level 108 mmol/L (97-110) Carbon Dioxide Level 26 mmol/L (21-31) Anion Gap 7 (5-13) Blood Urea Nitrogen 4 mg/dl (7-20) Creatinine 0.49 mg/dl (0.44-1.00) Est Glomerular Filtrat Rate mL/min > 60 mL/min (>60) Glucose Level 140 mg/dl (70-220) Calcium Level 8.1 mg/dl (8.4-10.2) Phosphorus Level 2.4 mg/dl (2.5-4.9) Magnesium Level 2.1 mg/dl (1.7-2.5) CORNELL FLORES NP Mar 23, 2019 14:34
== END 2019-03-23 15:15 | disposition home or self-care (01) | DRG 419 ==
LOC: FTE 19:56 → MS1 23:51
PROVIDERS: ADMIT Internal Medicine; ATTEND Internal Medicine
PROC: BF12YZZ Fluoroscopy of Gallbladder using Other Contrast (ICD-10-PCS; 2019-03-22)
PROC: 0FT44ZZ Resection of Gallbladder, Percutaneous Endoscopic Approach (ICD-10-PCS; principal; 2019-03-22 20:00)
DX: K80.12 Calculus of gallbladder with acute and chronic cholecystitis without obstruction (principal); K82.A1 Gangrene of gallbladder in cholecystitis; E87.6 Hypokalemia
CPT/HCPCS: 36415; 74176; 76705; 80048; 80053; 81001; 81025; 83690; 83735; 84100; 85025; 88304; 96374; 96375; 96376; J1100; J1170; J1885; J2270; J2405; J2543; J2710; J3010; J3480; J7030; J7042